=== PATIENT | male | born 1955 | race African-American/Black ===

== ENCOUNTER 2017-08-16 13:49 | Inpatient (IN) | payer MEDICAID, OTHER ==
[~2017-08-16] VITALS: Ht 195.6 cm; Wt 108.9 kg
[2017-08-16] MEDS ORDERED: LOSA25TA12 PO (13:56)
[2017-08-16 14:59] LABS: BASOPHILS % 0.6 % (0.0-2.0); EOSINOPHILS % 2.3 % (0.0-5.0); HEMATOCRIT. 38.9 % (42.0-52.0); HEMOGLOBIN. 13.4 g/dL (14.0-18.0); LYMPHOCYTES % 15.3 % (20.0-50.0); MEAN CORPUSCULAR HEMOGLOBIN 28.1 pg (28.0-32.0); MEAN CORPUSCULAR VOLUME 81.5 fL (80.0-94.0); MEAN PLATELET VOLUME 6.8 fl (7.4-10.4); MONOCYTES % 11.3 % (2.0-8.0); NEUTROPHILS % 70.5 % (40.0-76.0); PLATELET 356 x1000/uL (130-400); RED BLOOD CELL COUNT 4.77 mill/uL (4.7-6.1); RED CELL DISTRIBUTION WIDTH 15.3 % (11.6-14.6)
[2017-08-16 15:04] LABS: INR 1.1; PARTIAL THROMBOPLASTIN TIME 27.2 sec (23.4-31.0); PROTHROMBIN TIME 11.1 sec (9.4-11.6)
[2017-08-16 15:14] LABS: CARBON DIOXIDE 28 mEq/L (21-32); CHLORIDE 101 mEq/L (98-107); ETHANOL BLOOD < 10 mg/dL; TROPONIN I < 0.02 ng/mL (0.00-0.04)
[2017-08-16] MEDS ORDERED: LABETALOL 5MG/ML SYR 20 MG/4 ML SYRINGE IV ONE ×2 (16:45→17:45)
[2017-08-16] MEDS ORDERED: ASPIRIN 300MG SUPP PR ONE (16:45)
[2017-08-16] MEDS ORDERED: KETOROLAC 15MG/ML VIAL IV PRN (17:15)
[2017-08-16] MEDS ORDERED: DIPHENHYDRAMINE 50MG/ML VIAL IV PRN (17:15)
[2017-08-16] MEDS ORDERED: LORAZEPAM 0.5MG TABLET PO PRN (17:15)
[2017-08-16] MEDS ORDERED: ONDANSETRON HCL 4MG/2ML VIAL IV PRN (17:15)
[2017-08-16] MEDS ORDERED: ACETAMINOPHEN 325MG TABLET PO PRN (17:15)
[2017-08-16] MEDS ORDERED: DOCUSATE SODIUM 100MG CAPSULE PO PRN (17:15)
[2017-08-16] MEDS ORDERED: NITROGLYCERIN 0.4MG TABLET SL SL PRN (17:15)
[2017-08-16] MEDS ORDERED: MAGNESIUM/ALUMINUM HYDROXIDE/SIMETHICONE 30ML UDC PO PRN (17:15)
[2017-08-16] MEDS ORDERED: GUAIFENESIN 200MG/10ML SUGAR FREE UDC PO PRN (17:15)
[2017-08-16] MEDS ORDERED: IPRATROPIUM/ALBUTEROL 0.5-3(2.5)MG/3ML NEB INH PRN (17:15)
[2017-08-16] MEDS: CLONIDINE 0.1MG TABLET PO PRN (18:29)
[2017-08-16] MEDS ORDERED: DEXTROSE 50% WATER 50ML SYRINGE IV PRN (19:15)
[2017-08-16] MEDS ORDERED: NA PHOS,M-B/NA PHOS,DI-BA ENEMA 118ML PR PRN (20:00)
[2017-08-16] MEDS ORDERED: ZOLPIDEM TARTRATE 5MG TABLET PO PRN (20:30)
[2017-08-16 21:25] VITALS: BP 169/68
[2017-08-16] MEDS ORDERED: ENOXAPARIN 30MG/0.3ML SYR SUBCUT SCH (22:15)
[2017-08-16] MEDS: ATORVASTATIN CALCIUM 40MG TABLET PO SCH (22:18)
[2017-08-16] MEDS: METOPROLOL TARTRATE 25MG TABLET PO SCH (22:19)
[2017-08-16] MEDS: BLOOD SUGAR DIAGNOSTIC STRIP TEST SCH (22:19)
[2017-08-16] MEDS: LISINOPRIL 20MG TABLET PO SCH (22:19)
[2017-08-16] MEDS: INSULIN LISPRO 100 UNITS/ML SUBCUT SCH (22:29)
[2017-08-17] VITALS (8 sets, daily range): BP systolic 113–174; BP diastolic 69–95
[2017-08-17 00:28] LABS: CREATINE KINASE 456 IU/L (39-308); CREATINE KINASE MB FRACTION 0.6 ng/mL (0.5-3.6); TROPONIN I < 0.02 ng/mL (0.00-0.04)
[2017-08-17] MEDS: CLONIDINE 0.1MG TABLET PO PRN ×2 (00:57→06:41)
[2017-08-17] MEDS: BLOOD SUGAR DIAGNOSTIC STRIP TEST SCH ×4 (06:41→21:49)
[2017-08-17 07:43] LABS: CREATINE KINASE 540 IU/L (39-308); CREATINE KINASE MB FRACTION < 0.5 ng/mL (0.5-3.6); TROPONIN I < 0.02 ng/mL (0.00-0.04)
[2017-08-17] MEDS: INSULIN LISPRO 100 UNITS/ML SUBCUT SCH ×4 (08:46→21:51)
[2017-08-17] MEDS: CLOPIDOGREL 75MG TABLET PO SCH (08:47)
[2017-08-17] MEDS: METOPROLOL TARTRATE 25MG TABLET PO SCH ×2 (08:47→21:48)
[2017-08-17] MEDS: AMLODIPINE 10MG TABLET PO SCH (08:48)
[2017-08-17] MEDS: ENOXAPARIN 30MG/0.3ML SYR SUBCUT SCH ×2 (08:48→21:49)
[2017-08-17] MEDS: LISINOPRIL 20MG TABLET PO SCH ×2 (08:48→21:49)
[2017-08-17 12:58] LABS: *AMPHETAMINES SCREEN URINE NEGATIVE (NEGATIVE); *BARBITURATES SCREEN URINE NEGATIVE (NEGATIVE); *BENZODIAZEPINES SCREEN URINE NEGATIVE (NEGATIVE); *COCAINE SCREEN URINE NEGATIVE (NEGATIVE); CANNABINOID URINE SCREEN NEGATIVE (NEGATIVE); METHADONE URINE SCREEN NEGATIVE (NEGATIVE); OPIATES URINE SCREEN NEGATIVE (NEGATIVE); PHENCYCLIDINE URINE SCREEN NEGATIVE (NEGATIVE)
[2017-08-17] MEDS: ATORVASTATIN CALCIUM 40MG TABLET PO SCH (21:48)
[2017-08-18] VITALS: BP 136/82
[2017-08-18 04:00] VITALS: BP 156/84
[2017-08-18] MEDS: BLOOD SUGAR DIAGNOSTIC STRIP TEST SCH ×4 (05:25→21:11)
[2017-08-18] MEDS: INSULIN LISPRO 100 UNITS/ML SUBCUT SCH ×4 (05:32→21:16)
[2017-08-18 08:00] VITALS: BP 143/77
[2017-08-18] MEDS: ENOXAPARIN 30MG/0.3ML SYR SUBCUT SCH ×2 (09:09→21:11)
[2017-08-18] MEDS: CLOPIDOGREL 75MG TABLET PO SCH (09:09)
[2017-08-18] MEDS: LISINOPRIL 20MG TABLET PO SCH ×2 (09:10→21:09)
[2017-08-18] MEDS: METOPROLOL TARTRATE 25MG TABLET PO SCH ×2 (09:10→21:10)
[2017-08-18] MEDS: AMLODIPINE 10MG TABLET PO SCH (09:11)
[2017-08-18 12:00] VITALS: BP 146/84
[2017-08-18 16:00] VITALS: BP 134/78
[2017-08-18 17:31] LABS: T4 FREE 1.14 ng/dL (0.76-1.46)
[2017-08-18 17:52] LABS: FOLIC ACID (FOLATE) SERUM 12.3 ng/mL (>5.38)
[2017-08-18 20:00] VITALS: BP 151/74
[2017-08-18] MEDS: ATORVASTATIN CALCIUM 40MG TABLET PO SCH (21:10)
[2017-08-19] VITALS (7 sets, daily range): BP systolic 112–162; BP diastolic 78–98
[2017-08-19] MEDS: BLOOD SUGAR DIAGNOSTIC STRIP TEST SCH ×4 (06:23→21:19)
[2017-08-19] MEDS: CLOPIDOGREL 75MG TABLET PO SCH (09:22)
[2017-08-19] MEDS: LISINOPRIL 20MG TABLET PO SCH ×2 (09:22→20:43)
[2017-08-19] MEDS: AMLODIPINE 10MG TABLET PO SCH (09:23)
[2017-08-19] MEDS: METOPROLOL TARTRATE 25MG TABLET PO SCH ×2 (09:24→20:42)
[2017-08-19] MEDS: ENOXAPARIN 30MG/0.3ML SYR SUBCUT SCH ×2 (09:25→20:43)
[2017-08-19] MEDS: INSULIN LISPRO 100 UNITS/ML SUBCUT SCH ×4 (09:29→21:22)
[2017-08-19] MEDS: ATORVASTATIN CALCIUM 40MG TABLET PO SCH (20:42)
[2017-08-21 10:07] LABS: DILUTE RUSSELL VIPER VENOM TME 34.7 sec (0.0-47.0)
[2017-08-21 13:09] LABS: ANTI-CARDIOLIPIN AB IGA < 9 APL U/mL (0-11); ANTI-CARDIOLIPIN AB IGG < 9 GPL U/mL (0-14); ANTI-CARDIOLIPIN AB IGM 10 MPL U/mL (0-12)
== END 2017-08-19 22:00 | DRG 45 ==
LOC: ER 14:15 → 6WST 16:38 → EDBEDREQ 16:48 → EDBEDREQTM 16:48 → ENRESERV 19:40 → 6WST 22:13
PROVIDERS: ADMIT Internal Medicine; ATTEND Internal Medicine
DX: I63.9 Cerebral infarction, unspecified (principal); M62.82 Rhabdomyolysis; R13.10 Dysphagia, unspecified; S37.009A Unspecified injury of unspecified kidney, initial encounter; E11.65 Type 2 diabetes mellitus with hyperglycemia; G81.91 Hemiplegia, unspecified affecting right dominant side; R41.4 Neurologic neglect syndrome; R26.2 Difficulty in walking, not elsewhere classified; R29.810 Facial weakness; R47.01 Aphasia; W18.30XA Fall on same level, unspecified, initial encounter; I10 Essential (primary) hypertension; R47.1 Dysarthria and anarthria; E78.00 Pure hypercholesterolemia, unspecified; Z79.899 Other long term (current) drug therapy; Z82.49 Family history of ischemic heart disease and other diseases of the circulatory system; Y92.000 Kitchen of unspecified non-institutional (private) residence as the place of occurrence of the external cause
CPT/HCPCS: 36415; 70450; 70544; 70551; 71010; 80053; 80061; 80305; 81400; 81403; 81407; 81479; 82550; 82553; 82607; 82746; 82962; 83036; 83605; 84439; 84443; 84481; 84484; 85025; 85300; 85303; 85306; 85610; 85613; 85730; 86147; 87040; 92610; 93005; 93306; 93880; 93970; 96374; 97112; 97163; 97167; 97530; 99291; G0482; J1650; J1815; J3490

== ENCOUNTER 2018-05-27 13:43 | Emergency (ER) | payer MEDICAID ==
[~2018-05-27] VITALS: Ht 188 cm; Wt 96.5 kg
[~2018-05-27 13:43] MED LIST: ASPI-986 PO; ATOR10TA PO; LOSA50TA20 PO
[2018-05-27 14:05] LABS: BASOPHILS % 0.6 % (0.0-2.0); EOSINOPHILS % 4.3 % (0.0-5.0); HEMATOCRIT. 36.9 % (42.0-52.0); HEMOGLOBIN. 12.8 g/dL (14.0-18.0); LYMPHOCYTES % 31.4 % (20.0-50.0); MEAN CORPUSCULAR HEMOGLOBIN 29.2 pg (28.0-32.0); MEAN CORPUSCULAR VOLUME 84.3 fL (80.0-94.0); MEAN PLATELET VOLUME 6.7 fl (7.4-10.4); MONOCYTES % 7.2 % (2.0-8.0); NEUTROPHILS % 56.5 % (40.0-76.0); PLATELET 402 x1000/uL (130-400); RED BLOOD CELL COUNT 4.38 mill/uL (4.7-6.1); RED CELL DISTRIBUTION WIDTH 14.6 % (11.6-14.6)
[2018-05-27 14:12] LABS: CHLORIDE 105 mEq/L (98-107)
[2018-05-27 14:17] LABS: ETHANOL BLOOD < 10 mg/dL
[2018-05-27 14:19] LABS: LDL CHOLESTEROL 98 mg/dL (5-100)
[2018-05-27] MEDS ORDERED: SODIUM CHLORIDE 0.9% 1,000 ML IV ONE (14:45)
[2018-05-27 16:55] VITALS: BP 130/75
== END 2018-05-27 17:06 | disposition left against medical advice (07) ==
LOC: ER 13:52 → ENRESERV 16:45 → CANRESERV 16:45 → ER 17:06 → CANBEDREQ 18:45
DX: R53.1 Weakness (principal); G93.49 Other encephalopathy; I69.351 Hemiplegia and hemiparesis following cerebral infarction affecting right dominant side; I69.392 Facial weakness following cerebral infarction; I69.328 Other speech and language deficits following cerebral infarction; E11.9 Type 2 diabetes mellitus without complications; I10 Essential (primary) hypertension; R00.1 Bradycardia, unspecified; Z79.82 Long term (current) use of aspirin
CPT/HCPCS: 36415; 70450; 71045; 80053; 83721; 84484; 85025; 85610; 93005; 96360; 99291; G0482; J7030